=== PATIENT | female | born 1975 | race Two or more races ===

== ENCOUNTER → 2024-09-01 06:25 | Day surgery (SDC) | payer OTHER, SELFPAY ==
[2024-08-31 10:27] VITALS: BMI 20.9
[2024-08-31 10:47] LABS: Hematocrit 37.4 % (37.0-47.0); Hemoglobin 11.7 g/dL (12.0-16.0); Mean Corp Hgb Conc. 31.3 g/dL (33.0-37.0); Mean Corpuscular Hgb 22.5 pg (27.0-31.0); Mean Corpuscular Volume 71.9 fL (81.0-99.0); Mean Platelet Volume 10.3 fL (7.4-10.4); Platelet Count 183 10^3/uL (130-400); White Blood Cell Count 4.3 10^3/uL (4.8-10.8)
[2024-09-01] VITALS (8 sets, daily range): BP systolic 105–146; BP diastolic 63–80
[2024-09-01] MEDS: ROXICODONE 5 MG PO (21:18)
== END | disposition home or self-care (01) ==
LOC: SDS 06:25
PROVIDERS: ATTENDING PHYSICIAN Otolaryngology Facial Plastic Surgery; FAMILY PHYSICIAN Family Medicine
DX: T17.1XXA Foreign body in nostril, initial encounter (principal); W44.9XXA Unspecified foreign body entering into or through a natural orifice, initial encounter; J34.0 Abscess, furuncle and carbuncle of nose; J32.0 Chronic maxillary sinusitis; Z98.890 Other specified postprocedural states
CPT/HCPCS: 30310; 30020; 88300; 36415; 85027; 87070; 87075; 87147; 87205; 93005